=== PATIENT | male | born 1945 | race Caucasian/White ===

== ENCOUNTER → 2017-12-09 | Outpatient (CLI) | payer MEDICARE ==
[~2017-12-09] MED LIST: ACET325 PO; ANTIINFLAMMATORY; ASPI325; CHLO25B PO; CIPR500 PO; CLOP75 PO; ERGO400 PO; FINA5 PO; FISH1000 PO; GABA300 PO; HCTZ; HYDCHL12.5; HYDCHL25 PO; HYDR1TAB94 PO; IBUP400 PO; LISI10; LORA1 PO; LOSA50 PO; MELA3 PO; Mag-G500 MG; PANT40; PARO20 PO; POTA10T; POTA10T PO; PSYL5.85P PO; RXHYD5325 PO; SENN187 PO; SERT25 PO; SIMV10; TRAM50 PO
== END | disposition home or self-care (01) ==
LOC: PLD 13:52 → LAB SHORT 13:52
DX: D22.62 Melanocytic nevi of left upper limb, including shoulder (principal)
CPT/HCPCS: 88305

== ENCOUNTER 2018-01-07 11:55 | Day surgery (SDC) | payer MEDICARE ==
[~2018-01-07] VITALS: Ht 190.5 cm; Wt 105.0 kg
[2018-01-07] MEDS ORDERED: GLUC500 (12:52)
== END 2018-01-07 14:45 | disposition home or self-care (01) ==
LOC: ORSCSDS 11:55
PROVIDERS: Internal Medicine Gastroenterology
PROC: 0DJD8ZZ Inspection of Lower Intestinal Tract, Via Natural or Artificial Opening Endoscopic (ICD-10-PCS; principal; 2018-01-07 13:15)
DX: Z86.010 Personal history of colon polyps (principal); K64.8 Other hemorrhoids; I10 Essential (primary) hypertension; E78.5 Hyperlipidemia, unspecified; Z79.899 Other long term (current) drug therapy
CPT/HCPCS: J7120

== ENCOUNTER 2018-09-09 16:25 | Emergency (ER) | payer MEDICARE ==
[~2018-09-09] VITALS: Ht 190.5 cm; Wt 104.3 kg
[~2018-09-09 16:25] MED LIST changes: +GLUC500
[2018-09-09 17:50] LABS: BASOPHILS ABSOLUTE AUTO 0.04 K/mm3 (0.00-0.23); BASOPHILS PERCENT AUTO 1 % (0-2); EOSINOPHILS ABSOLUTE AUTO 0.03 K/mm3 (0.00-0.68); EOSINOPHILS PERCENT AUTO 1 % (0-6); Hematocrit 41.3 % (37.0-53.0); Hemoglobin 14.1 g/dL (13.5-17.5); IMMATURE GRAN ABSOLUTE AUTO 0.02 K/mm3 (0.00-0.10); IMMATURE GRAN PERCENT AUTO 0 % (0-1); LYMPHOCYTES ABSOLUTE AUTO 1.42 K/mm3 (0.84-5.20); LYMPHOCYTES PERCENT AUTO 22 % (21-46); MONOCYTES ABSOLUTE AUTO 0.61 K/mm3 (0.16-1.47); MONOCYTES PERCENT AUTO 9 % (4-13); Mean Corpuscular HGB 31.5 pg (26.0-34.0); Mean Corpuscular HGB Conc 34.1 g/dL (31.5-36.5); Mean Corpuscular Volume 92 fL (80-100); Mean Platelet Volume 9.6 fL (9.1-12.4); NEUTROPHILS ABSOLUTE AUTO 4.38 K/mm3 (1.96-9.15); NEUTROPHILS PERCENT AUTO 67 % (41-73); Platelet Count 220 K/mm3 (150-400); RDW Coefficient Variation 12.3 % (11.7-14.2); RDW Standard Deviation 42.1 fL (35.1-46.3); Red Blood Cell Count 4.48 M/mm3 (4.30-5.90)
[2018-09-09 17:57] LABS: Alanine Aminotransfer (ALT/SGP 29 U/L (12-78); Albumin, Blood 3.8 g/dL (3.4-5.0); Albumin/Globulin Ratio 1.1 (0.8-1.8); Alk Phos 64 U/L (50-136); Anion Gap 8 mmol/L (6-16); Aspartate Aminotrans (AST/SGOT 26 U/L (12-37); Bilirubin, Total 0.7 mg/dL (0.1-1.0); Blood Urea Nitrogen 21 mg/dL (8-24); Bun/Creatinine Ratio 19.4 (12.0-20.0); CO2, Blood 23 mmol/L (21-32); Calcium, Blood 8.7 mg/dL (8.5-10.1); Chloride, Blood 107 mmol/L (98-108); Creatinine, Blood 1.08 mg/dL (0.60-1.20); Globulin, Blood 3.6 g/dL (2.2-4.0); Glomerular Filtration Rate >60 (60-); Glucose, Blood 97 mg/dL (70-99); Potassium, Blood 3.8 mmol/L (3.5-5.5); Sodium, Blood 138 mmol/L (136-145); Total Protein, Blood 7.4 g/dL (6.4-8.2); Troponin I 0.019 ng/mL (0.000-0.040)
== END 2018-09-09 21:00 | disposition home or self-care (01) ==
LOC: ER 16:25
PROVIDERS: Physician Assistant
DX: R06.00 Dyspnea, unspecified (principal); F41.9 Anxiety disorder, unspecified; Z79.899 Other long term (current) drug therapy
CPT/HCPCS: 36415; 71046; 80053; 83880; 84484; 85025; 93005; 93010; 99285-25

== ENCOUNTER → 2018-10-31 | Outpatient (CLI) | payer MEDICARE ==
[2018-10-31 12:27] LABS: BASOPHILS ABSOLUTE AUTO 0.03 K/mm3 (0.00-0.23); BASOPHILS PERCENT AUTO 1 % (0-2); EOSINOPHILS ABSOLUTE AUTO 0.04 K/mm3 (0.00-0.68); EOSINOPHILS PERCENT AUTO 1 % (0-6); Hematocrit 41.4 % (37.0-53.0); Hemoglobin 14.5 g/dL (13.5-17.5); IMMATURE GRAN ABSOLUTE AUTO 0.02 K/mm3 (0.00-0.10); IMMATURE GRAN PERCENT AUTO 0 % (0-1); LYMPHOCYTES ABSOLUTE AUTO 0.92 K/mm3 (0.84-5.20); LYMPHOCYTES PERCENT AUTO 17 % (21-46); MONOCYTES ABSOLUTE AUTO 0.42 K/mm3 (0.16-1.47); MONOCYTES PERCENT AUTO 8 % (4-13); Mean Corpuscular HGB 31.7 pg (26.0-34.0); Mean Corpuscular Volume 91 fL (80-100); Mean Platelet Volume 9.8 fL (9.1-12.4); NEUTROPHILS ABSOLUTE AUTO 4.04 K/mm3 (1.96-9.15); NEUTROPHILS PERCENT AUTO 74 % (41-73); Platelet Count 216 K/mm3 (150-400); RDW Coefficient Variation 12.8 % (11.7-14.2); RDW Standard Deviation 41.5 fL (35.1-46.3); Red Blood Cell Count 4.57 M/mm3 (4.30-5.90); White Blood Cell Count 5.47 K/mm3 (4.00-11.30)
[2018-10-31 12:36] LABS: Anion Gap 10 mmol/L (6-16); Blood Urea Nitrogen 20 mg/dL (8-24); Bun/Creatinine Ratio 16.9 (12.0-20.0); CO2, Blood 27 mmol/L (21-32); Calcium, Blood 8.9 mg/dL (8.5-10.1); Chloride, Blood 103 mmol/L (98-108); Creatinine, Blood 1.18 mg/dL (0.60-1.20); Glomerular Filtration Rate >60 (60-); Glucose, Blood 102 mg/dL (70-99); Potassium, Blood 3.9 mmol/L (3.5-5.5); Sodium, Blood 140 mmol/L (136-145); Troponin I 0.028 ng/mL (0.000-0.040)
== END | disposition home or self-care (01) ==
LOC: LAB EV 12:19 → LAB SHORT 12:19
PROVIDERS: Physician Assistant Surgical
DX: R42 Dizziness and giddiness (principal)
CPT/HCPCS: 80048; 84484; 85025

== ENCOUNTER 2019-01-12 13:10 | Emergency (ER) | payer MEDICARE ==
[~2019-01-12] VITALS: Ht 188 cm; Wt 103.4 kg
[2019-01-12 14:13] LABS: BASOPHILS ABSOLUTE AUTO 0.03 K/mm3 (0.00-0.23); BASOPHILS PERCENT AUTO 1 % (0-2); EOSINOPHILS ABSOLUTE AUTO 0.05 K/mm3 (0.00-0.68); EOSINOPHILS PERCENT AUTO 1 % (0-6); Hematocrit 42.9 % (37.0-53.0); Hemoglobin 14.7 g/dL (13.5-17.5); IMMATURE GRAN ABSOLUTE AUTO 0.02 K/mm3 (0.00-0.10); IMMATURE GRAN PERCENT AUTO 0 % (0-1); LYMPHOCYTES ABSOLUTE AUTO 1.14 K/mm3 (0.84-5.20); LYMPHOCYTES PERCENT AUTO 22 % (21-46); MONOCYTES ABSOLUTE AUTO 0.56 K/mm3 (0.16-1.47); MONOCYTES PERCENT AUTO 11 % (4-13); Mean Corpuscular HGB 31.8 pg (26.0-34.0); Mean Corpuscular HGB Conc 34.3 g/dL (31.5-36.5); Mean Corpuscular Volume 93 fL (80-100); Mean Platelet Volume 9.5 fL (9.1-12.4); NEUTROPHILS ABSOLUTE AUTO 3.49 K/mm3 (1.96-9.15); NEUTROPHILS PERCENT AUTO 66 % (41-73); Platelet Count 226 K/mm3 (150-400); RDW Coefficient Variation 12.5 % (11.7-14.2); RDW Standard Deviation 42.2 fL (35.1-46.3); Red Blood Cell Count 4.62 M/mm3 (4.30-5.90); White Blood Cell Count 5.29 K/mm3 (4.00-11.30)
[2019-01-12 14:41] LABS: Alanine Aminotransfer (ALT/SGP 30 U/L (12-78); Albumin, Blood 3.8 g/dL (3.4-5.0); Alk Phos 64 U/L (50-136); Anion Gap 7 mmol/L (6-16); Aspartate Aminotrans (AST/SGOT 13 U/L (12-37); Bilirubin, Total 0.7 mg/dL (0.1-1.0); Blood Urea Nitrogen 22 mg/dL (8-24); CO2, Blood 26 mmol/L (21-32); Calcium, Blood 9.2 mg/dL (8.5-10.1); Chloride, Blood 109 mmol/L (98-108); Creatinine, Blood 1.05 mg/dL (0.60-1.20); Globulin, Blood 3.9 g/dL (2.2-4.0); Glomerular Filtration Rate >60 (60-); Glucose, Blood 108 mg/dL (70-99); Potassium, Blood 3.9 mmol/L (3.5-5.5); Sodium, Blood 142 mmol/L (136-145); Total Protein, Blood 7.7 g/dL (6.4-8.2)
[2019-01-12 14:47] LABS: International Normalized Ratio 1.03; Prothrombin Time Results 10.9 Sec (9.7-11.5)
== END 2019-01-12 15:13 | disposition home or self-care (01) ==
LOC: ER 13:10
PROVIDERS: Physician Assistant
DX: S06.0X0A Concussion without loss of consciousness, initial encounter (principal); I10 Essential (primary) hypertension; E78.5 Hyperlipidemia, unspecified; W18.30XA Fall on same level, unspecified, initial encounter
CPT/HCPCS: 36415; 70450; 72125; 80053; 85025; 85610; 85730; 93005; 93010; 99284-25; L0160

== ENCOUNTER 2019-05-08 23:18 | Emergency (ER) | payer MEDICARE ==
[~2019-05-08] VITALS: Ht 188 cm; Wt 104.3 kg
[2019-05-09 00:07] LABS: BASOPHILS ABSOLUTE AUTO 0.02 K/mm3 (0.00-0.23); BASOPHILS PERCENT AUTO 0 % (0-2); EOSINOPHILS PERCENT AUTO 2 % (0-6); Hematocrit 39.7 % (37.0-53.0); Hemoglobin 13.5 g/dL (13.5-17.5); IMMATURE GRAN ABSOLUTE AUTO 0.01 K/mm3 (0.00-0.10); IMMATURE GRAN PERCENT AUTO 0 % (0-1); LYMPHOCYTES ABSOLUTE AUTO 1.29 K/mm3 (0.84-5.20); LYMPHOCYTES PERCENT AUTO 24 % (21-46); MONOCYTES ABSOLUTE AUTO 0.52 K/mm3 (0.16-1.47); MONOCYTES PERCENT AUTO 10 % (4-13); Mean Corpuscular HGB 31.5 pg (26.0-34.0); Mean Corpuscular Volume 93 fL (80-100); Mean Platelet Volume 9.5 fL (9.1-12.4); NEUTROPHILS ABSOLUTE AUTO 3.51 K/mm3 (1.96-9.15); NEUTROPHILS PERCENT AUTO 64 % (41-73); Platelet Count 212 K/mm3 (150-400); RDW Coefficient Variation 12.5 % (11.7-14.2); RDW Standard Deviation 42.5 fL (35.1-46.3); Red Blood Cell Count 4.28 M/mm3 (4.30-5.90); White Blood Cell Count 5.45 K/mm3 (4.00-11.30)
[2019-05-09 00:29] LABS: Alanine Aminotransfer (ALT/SGP 30 U/L (12-78); Albumin, Blood 3.6 g/dL (3.4-5.0); Albumin/Globulin Ratio 1.1 (0.8-1.8); Alk Phos 55 U/L (50-136); Anion Gap 7 mmol/L (6-16); Aspartate Aminotrans (AST/SGOT 27 U/L (12-37); Bilirubin, Total 0.6 mg/dL (0.1-1.0); Blood Urea Nitrogen 24 mg/dL (8-24); CO2, Blood 27 mmol/L (21-32); Calcium, Blood 8.9 mg/dL (8.5-10.1); Chloride, Blood 109 mmol/L (98-108); Globulin, Blood 3.4 g/dL (2.2-4.0); Glomerular Filtration Rate >60 (60-); Glucose, Blood 109 mg/dL (70-99); Potassium, Blood 3.9 mmol/L (3.5-5.5); Sodium, Blood 143 mmol/L (136-145); Troponin I <0.015 ng/mL (0.000-0.040)
[2019-05-09 01:11] LABS: Source, Urine Clean Catch
[2019-05-09 01:13] LABS: Bilirubin, Urine Neg (Neg); Blood, Urine Neg (Neg); Glucose Qualitative, Urine Neg (Neg); Ketones, Urine 1+ (Neg); Leukocyte Esterase, Urine 1+ (Neg); Nitrite, Urine Neg (Neg); Protein, Urine Neg (Neg); Urobilinogen, Urine NORM (Normal); pH, Urine 6.5 (5.0-8.0)
[2019-05-09 01:17] LABS: Appearance, Urine Clear (Clear); Color, Urine Yellow (P-Yellow)
[2019-05-09 01:20] LABS: Bacteria Rare /hpf; Red Blood Cells, Urine 0-2 /hpf (0-2); Squamous Epithelial Cells Few /hpf (Few); White Blood Cells, Urine 0-2 /hpf (0-5)
[2019-05-09] MEDS ORDERED: Bactrim Ds Tab1 EACH PO (01:32)
[2019-05-09] MEDS ORDERED: Simvastatin20 MG PO (03:02)
[2019-05-09] MEDS ORDERED: HYDCHL25 PO (03:02)
[2019-05-09] MEDS ORDERED: LOSARTAN POTASS25 M2 PO (03:02)
== END 2019-05-09 01:53 | disposition home or self-care (01) ==
LOC: ER 23:18
PROVIDERS: Emergency Medicine
DX: R82.71 Bacteriuria (principal); R68.89 Other general symptoms and signs; R68.83 Chills (without fever); Z88.5 Allergy status to narcotic agent; Z88.8 Allergy status to other drugs, medicaments and biological substances; Z79.899 Other long term (current) drug therapy; G89.29 Other chronic pain; M54.2 Cervicalgia
CPT/HCPCS: 36415; 80053; 81001; 82947; 84484; 85025; 87086; 93005; 93010; 99284-25

== ENCOUNTER 2022-06-05 11:09 | Day surgery (SDC) | payer MEDICARE ==
[~2022-06-05] VITALS: Ht 188 cm; Wt 98.4 kg
[~2022-06-05 11:09] MED LIST changes: +Bactrim Ds Tab1 EACH PO; +LOSARTAN POTASS25 M2 PO; +Simvastatin20 MG PO
[2022-06-05] MEDS ORDERED: Aspir 8181 MG PO (11:53)
[2022-06-05] MEDS ORDERED: GLUC500 (11:55)
[2022-06-05] MEDS ORDERED: GABA300 PO (11:55)
[2022-06-05] MEDS ORDERED: POTASSIUM99 M3 PO (11:56)
[2022-06-05] MEDS ORDERED: LEVE500 (11:56)
[2022-06-05] MEDS ORDERED: TRIA50 PO (11:57)
[2022-06-05] MEDS ORDERED: Restasis1 EACH BOTHEYES (11:57)
--- NOTE | 2022-06-05 12:22 | NUR ---
06/05/22 1222 Gulshan Calvert CALL LIGHT WITHIN REACH
== END 2022-06-05 14:54 | disposition home or self-care (01) ==
LOC: ORSCSDS 11:09
PROVIDERS: Internal Medicine Gastroenterology
PROC: 0DBL8ZX Excision of Transverse Colon, Via Natural or Artificial Opening Endoscopic, Diagnostic (ICD-10-PCS; principal; 2022-06-05 12:30)
PROC: 0DBE8ZX Excision of Large Intestine, Via Natural or Artificial Opening Endoscopic, Diagnostic (ICD-10-PCS; principal; 2022-06-05 12:30)
DX: R19.4 Change in bowel habit (principal); Z86.010 Personal history of colon polyps; D12.3 Benign neoplasm of transverse colon; Z87.19 Personal history of other diseases of the digestive system; K57.30 Diverticulosis of large intestine without perforation or abscess without bleeding; K64.8 Other hemorrhoids; I10 Essential (primary) hypertension; G47.33 Obstructive sleep apnea (adult) (pediatric); Z86.73 Personal history of transient ischemic attack (TIA), and cerebral infarction without residual deficits; M79.7 Fibromyalgia; Z79.899 Other long term (current) drug therapy
CPT/HCPCS: 88305; J0461; J2405; J2704; J7120

== ENCOUNTER → 2022-10-22 | Outpatient (CLI) | payer MEDICARE ==
[~2022-10-22] MED LIST changes: +Aspir 8181 MG PO; +LEVE500; +POTASSIUM99 M3 PO; +Restasis1 EACH BOTHEYES; +TRIA50 PO
[2022-10-22 17:11] LABS: BASOPHILS ABSOLUTE AUTO 0.04 K/mm3 (0.00-0.23); BASOPHILS PERCENT AUTO 1 % (0-2); EOSINOPHILS ABSOLUTE AUTO 0.08 K/mm3 (0.00-0.68); EOSINOPHILS PERCENT AUTO 1 % (0-6); Hematocrit 43.3 % (37.0-53.0); IMMATURE GRAN ABSOLUTE AUTO 0.02 K/mm3 (0.00-0.10); IMMATURE GRAN PERCENT AUTO 0 % (0-1); LYMPHOCYTES ABSOLUTE AUTO 1.28 K/mm3 (0.84-5.20); LYMPHOCYTES PERCENT AUTO 21 % (21-46); MONOCYTES ABSOLUTE AUTO 0.62 K/mm3 (0.16-1.47); MONOCYTES PERCENT AUTO 10 % (4-13); Mean Corpuscular HGB 30.9 pg (26.0-34.0); Mean Corpuscular HGB Conc 34.6 g/dL (31.5-36.5); Mean Corpuscular Volume 89 fL (80-100); Mean Platelet Volume 9.4 fL (9.1-12.4); NEUTROPHILS ABSOLUTE AUTO 3.99 K/mm3 (1.96-9.15); NEUTROPHILS PERCENT AUTO 66 % (41-73); Platelet Count 243 K/mm3 (150-400); RDW Coefficient Variation 12.7 % (11.7-14.2); RDW Standard Deviation 41.2 fL (35.1-46.3); Red Blood Cell Count 4.86 M/mm3 (4.30-5.90); White Blood Cell Count 6.03 K/mm3 (4.00-11.30)
[2022-10-22 17:15] LABS: Bun/Creatinine Ratio 16.3 (12.0-20.0); Creatinine, Blood 1.23 mg/dL (0.60-1.20); Potassium, Blood 3.8 mmol/L (3.5-5.5)
== END | disposition home or self-care (01) ==
LOC: LAB 17:05 → LAB SHORT 17:05
PROVIDERS: Physician Assistant Medical
DX: R07.89 Other chest pain (principal)
CPT/HCPCS: 80048; 84484; 85025

== ENCOUNTER 2023-08-04 08:57 | Emergency (ER) | payer MEDICARE ==
[~2023-08-04] VITALS: Ht 188 cm; Wt 95.2 kg
[~2023-08-04 08:57] MED LIST changes: +GLUC500 PO; -LEVE500; +LEVE500 PO
[2023-08-04 10:19] LABS: BASOPHILS ABSOLUTE AUTO 0.05 K/mm3 (0.00-0.23); BASOPHILS PERCENT AUTO 1 % (0-2); EOSINOPHILS ABSOLUTE AUTO 0.05 K/mm3 (0.00-0.68); EOSINOPHILS PERCENT AUTO 1 % (0-6); Hematocrit 39.9 % (37.0-53.0); Hemoglobin 13.7 g/dL (13.5-17.5); IMMATURE GRAN ABSOLUTE AUTO 0.02 K/mm3 (0.00-0.10); IMMATURE GRAN PERCENT AUTO 0 % (0-1); LYMPHOCYTES ABSOLUTE AUTO 1.08 K/mm3 (0.84-5.20); LYMPHOCYTES PERCENT AUTO 16 % (21-46); MONOCYTES ABSOLUTE AUTO 0.55 K/mm3 (0.16-1.47); MONOCYTES PERCENT AUTO 8 % (4-13); Mean Corpuscular HGB 30.8 pg (26.0-34.0); Mean Corpuscular HGB Conc 34.3 g/dL (31.5-36.5); Mean Corpuscular Volume 90 fL (80-100); Mean Platelet Volume 9.5 fL (9.1-12.4); NEUTROPHILS ABSOLUTE AUTO 4.98 K/mm3 (1.96-9.15); NEUTROPHILS PERCENT AUTO 74 % (41-73); Platelet Count 277 K/mm3 (150-400); RDW Coefficient Variation 12.3 % (11.7-14.2); RDW Standard Deviation 40.1 fL (35.1-46.3); Red Blood Cell Count 4.45 M/mm3 (4.30-5.90); White Blood Cell Count 6.73 K/mm3 (4.00-11.30)
[2023-08-04 11:30] LABS: Thyroid Stimulating Hormone 1.4 uIU/mL (0.360-4.800)
[2023-08-04 11:31] LABS: Albumin, Blood 3.6 g/dL (3.4-5.0); Albumin/Globulin Ratio 0.9 (0.8-1.8); Bilirubin, Total 0.6 mg/dL (0.1-1.0); Bun/Creatinine Ratio 25.2 (12.0-20.0); Calcium, Blood 10.6 mg/dL (8.5-10.1); Creatinine, Blood 1.03 mg/dL (0.60-1.20); Globulin, Blood 3.9 g/dL (2.2-4.0); Potassium, Blood 3.9 mmol/L (3.5-5.5); Total Protein, Blood 7.5 g/dL (6.4-8.2)
[2023-08-04] MEDS ORDERED: LACOSAMIDE PO (11:35)
[2023-08-04] MEDS ORDERED: DYAZIDE 37.5-21 EACH PO (11:36)
[2023-08-04] MEDS ORDERED: TOPI25 PO (11:37)
[2023-08-04 12:57] VITALS: BP 150/95
== END 2023-08-04 12:58 | disposition home or self-care (01) ==
LOC: ER 08:57
PROVIDERS: Emergency Medicine
DX: R41.0 Disorientation, unspecified (principal); I10 Essential (primary) hypertension; Z88.5 Allergy status to narcotic agent; Z88.8 Allergy status to other drugs, medicaments and biological substances; Z79.899 Other long term (current) drug therapy; Z79.82 Long term (current) use of aspirin
CPT/HCPCS: 70450; 80053; 82607; 82746; 84443; 85025; 99283-25

== ENCOUNTER → 2024-05-21 | Outpatient (CLI) | payer MEDICARE ==
[~2024-05-21] MED LIST changes: +CEFP200 PO; +CELEXA10 MG PO; +CINACALCET HCL30 M1 PO; +DYAZIDE 37.5-21 EACH PO; +FUROSEMIDE20 MG PO; +LACOSAMIDE PO; +TAMSULOSIN HCL0.4 M1 PO; +TOPI25 PO; +VITAMIN D325 MC3 PO; +Vitamin B-12100 MCG PO
[2024-05-21 09:08] LABS: Source, Urine Voided
[2024-05-21 10:34] LABS: Appearance, Urine Hazy (Clear); Bilirubin, Urine Neg (Neg); Blood, Urine Neg (Neg); Color, Urine Yellow (P-Yellow); Glucose Qualitative, Urine Neg (Neg); Ketones, Urine Neg (Neg); Leukocyte Esterase, Urine Neg (Neg); Nitrite, Urine Neg (Neg); Protein, Urine Neg (Neg); Specific Gravity, Urine 1.015 (1.003-1.022); Urobilinogen, Urine 1+ (Normal)
[2024-05-21 11:37] LABS: Amorphous Mod (0-Heavy); Bacteria Few /hpf; Red Blood Cells, Urine 0-2 /hpf (0-2); Squamous Epithelial Cells Rare /hpf (Few); White Blood Cells, Urine 0-2 /hpf (0-5)
== END ==
LOC: LAB SHORT 08:40 → LAB 08:40
PROVIDERS: Hospitalist
DX: E21.3 Hyperparathyroidism, unspecified (principal)
CPT/HCPCS: 81001

== ENCOUNTER → 2024-10-09 | Outpatient (CLI) | payer MEDICARE ==
[2024-10-09 09:41] LABS: Source, Urine Voided
[2024-10-09 10:27] LABS: Appearance, Urine Clear (Clear); Bilirubin, Urine Neg (Neg); Blood, Urine Neg (Neg); Color, Urine Yellow (P-Yellow); Glucose Qualitative, Urine Neg (Neg); Ketones, Urine Neg (Neg); Leukocyte Esterase, Urine 1+ (Neg); Nitrite, Urine Pos (Neg); Protein, Urine 1+ (Neg); Urobilinogen, Urine NORM (Normal)
[2024-10-09 10:46] LABS: Mucus Light (0-Heavy); Squamous Epithelial Cells Rare /hpf (Few)
[2024-10-09 10:47] LABS: Bacteria Mod /hpf; Red Blood Cells, Urine 0-2 /hpf (0-2)
== END ==
LOC: LAB SHORT 09:40 → LAB 09:40
PROVIDERS: Hospitalist
DX: E21.3 Hyperparathyroidism, unspecified (principal)
CPT/HCPCS: 81001; 87086

== ENCOUNTER → 2024-12-31 | Outpatient (CLI) | payer MEDICARE | END | disposition home or self-care (01) | LOC: LAB 10:52 → LAB SHORT 10:52 | DX: N39.0 Urinary tract infection, site not specified (principal) | CPT/HCPCS: 87077; 87086; 87186 ==

== ENCOUNTER 2025-02-25 10:06 | Emergency (ER) | payer MEDICARE ==
[~2025-02-25] VITALS: Ht 182.9 cm; Wt 113.4 kg
[2025-02-25 11:28] LABS: Source, Urine Clean Catch
[2025-02-25 11:45] LABS: BASOPHILS ABSOLUTE AUTO 0.02 K/mm3 (0.00-0.23); BASOPHILS PERCENT AUTO 0 % (0-2); EOSINOPHILS ABSOLUTE AUTO 0.09 K/mm3 (0.00-0.68); EOSINOPHILS PERCENT AUTO 1 % (0-6); Hemoglobin 10.7 g/dL (13.5-17.5); IMMATURE GRAN ABSOLUTE AUTO 0.03 K/mm3 (0.00-0.10); IMMATURE GRAN PERCENT AUTO 0 % (0-1); LYMPHOCYTES ABSOLUTE AUTO 0.68 K/mm3 (0.84-5.20); LYMPHOCYTES PERCENT AUTO 9 % (21-46); MONOCYTES ABSOLUTE AUTO 0.67 K/mm3 (0.16-1.47); MONOCYTES PERCENT AUTO 9 % (4-13); Mean Corpuscular HGB 31.7 pg (26.0-34.0); Mean Corpuscular HGB Conc 34.5 g/dL (31.5-36.5); Mean Corpuscular Volume 92 fL (80-100); NEUTROPHILS PERCENT AUTO 80 % (41-73); Platelet Count 179 K/mm3 (150-400); RDW Coefficient Variation 12.7 % (11.7-14.2); RDW Standard Deviation 42.5 fL (35.1-46.3); Red Blood Cell Count 3.38 M/mm3 (4.30-5.90); White Blood Cell Count 7.59 K/mm3 (4.00-11.30)
[2025-02-25 11:49] LABS: Appearance, Urine Cloudy (Clear); Bilirubin, Urine Neg (Neg); Blood, Urine 4+ (Neg); Color, Urine Yellow (P-Yellow); Glucose Qualitative, Urine Neg (Neg); Ketones, Urine Neg (Neg); Leukocyte Esterase, Urine 3+ (Neg); Nitrite, Urine Pos (Neg); Protein, Urine 2+ (Neg); Specific Gravity, Urine 1.015 (1.003-1.022); Urobilinogen, Urine NORM (Normal); pH, Urine 6.5 (5.0-8.0)
[2025-02-25 12:07] LABS: Albumin, Blood 2.9 g/dL (3.4-5.0); Albumin/Globulin Ratio 0.9 (0.8-1.8); Bilirubin, Total 0.7 mg/dL (0.1-1.0); Bun/Creatinine Ratio 19.1 (12.0-20.0); Calcium, Blood 10.2 mg/dL (8.5-10.1); Globulin, Blood 3.2 g/dL (2.2-4.0); Potassium, Blood 3.8 mmol/L (3.5-5.5); Total Protein, Blood 6.1 g/dL (6.4-8.2)
[2025-02-25] MEDS ORDERED: CefTRIAXone Sodium 1,000 MG in NS 100 ML IV ONE (12:25)
[2025-02-25 12:27] LABS: Bacteria Many /hpf; Red Blood Cells, Urine 25-50 /hpf (0-2); Squamous Epithelial Cells Rare /hpf (Few); White Blood Cells, Urine 50-100 /hpf (0-5)
[2025-02-25] MEDS ORDERED: CEFP200 PO (13:10)
[2025-02-25 14:21] VITALS: BP 124/76
== END 2025-02-25 14:22 | disposition home or self-care (01) ==
LOC: ER 10:06
PROVIDERS: Emergency Medicine
DX: N30.00 Acute cystitis without hematuria (principal); I10 Essential (primary) hypertension; Z86.73 Personal history of transient ischemic attack (TIA), and cerebral infarction without residual deficits; Z79.82 Long term (current) use of aspirin; Z79.899 Other long term (current) drug therapy; Z88.5 Allergy status to narcotic agent; Z88.8 Allergy status to other drugs, medicaments and biological substances
CPT/HCPCS: 80053; 81001; 84484; 85025; 87086; 93005; 93010; 96365; 99284-25; J0696

== ENCOUNTER 2025-03-27 22:04 | Inpatient (IN) | payer MEDICARE ==
[~2025-03-27] VITALS: Ht 188 cm; Wt 85.1 kg
[~2025-03-27 22:04] MED LIST changes: +Vitamin B-12100 MCG; -Vitamin B-12100 MCG PO
[2025-03-27 23:00] LABS: BASOPHILS ABSOLUTE AUTO 0.02 K/mm3 (0.00-0.23); BASOPHILS PERCENT AUTO 0 % (0-2); EOSINOPHILS ABSOLUTE AUTO 0.05 K/mm3 (0.00-0.68); EOSINOPHILS PERCENT AUTO 1 % (0-6); Hematocrit 35.6 % (37.0-53.0); Hemoglobin 11.9 g/dL (13.5-17.5); IMMATURE GRAN ABSOLUTE AUTO 0.05 K/mm3 (0.00-0.10); IMMATURE GRAN PERCENT AUTO 1 % (0-1); LYMPHOCYTES ABSOLUTE AUTO 0.73 K/mm3 (0.84-5.20); LYMPHOCYTES PERCENT AUTO 11 % (21-46); MONOCYTES ABSOLUTE AUTO 0.41 K/mm3 (0.16-1.47); MONOCYTES PERCENT AUTO 6 % (4-13); Mean Corpuscular HGB Conc 33.4 g/dL (31.5-36.5); Mean Corpuscular Volume 93 fL (80-100); NEUTROPHILS ABSOLUTE AUTO 5.12 K/mm3 (1.96-9.15); NEUTROPHILS PERCENT AUTO 80 % (41-73); NRBC ABSOLUTE 0.00 K/mm3 (0.00-0.02); NRBC Auto 0.0 /100 WBC (0.0-0.2); Platelet Count 187 K/mm3 (150-400); RDW Coefficient Variation 13.2 % (11.7-14.2); RDW Standard Deviation 44.9 fL (35.1-46.3)
[2025-03-27 23:24] LABS: Alanine Aminotransfer (ALT/SGP 25.0 U/L (12-78); Albumin, Blood 3.3 g/dL (3.4-5.0); Albumin/Globulin Ratio 0.9 (0.8-1.8); Anion Gap 7.0 mmol/L (3-11); Aspartate Aminotrans (AST/SGOT 22.0 U/L (12-37); Bilirubin, Total 0.5 mg/dL (0.1-1.0); Blood Urea Nitrogen 20.0 mg/dL (8-24); CO2, Blood 28.0 mmol/L (21-32); Calcium, Blood 11.2 mg/dL (8.5-10.1); Chloride, Blood 107.0 mmol/L (98-108); Creatinine, Blood 1.17 mg/dL (0.60-1.20); Globulin, Blood 3.6 g/dL (2.2-4.0); Glucose, Blood 117.0 mg/dL (70-99); Potassium, Blood 3.7 mmol/L (3.5-5.5); Sodium, Blood 138.0 mmol/L (136-145); Total Protein, Blood 6.9 g/dL (6.4-8.2)
[2025-03-28] VITALS (21 sets, daily range): BP systolic 87–152; BP diastolic 59–93
[2025-03-28] MEDS ORDERED: Glycerin Adult Supp 1 EA PR ONE (00:05)
[2025-03-28] MEDS ORDERED: Ondansetron HCl 2 MG / ML 2ML Vial IV PRN ×2 (00:15→11:45)
[2025-03-28] MEDS ORDERED: FentaNYL Citrate 50 MCG/ML 2 ML Injection IV PRN ×3 (00:15→11:45)
[2025-03-28] MEDS ORDERED: NS 1,000 ML IV SCH (00:15)
[2025-03-28] MEDS ORDERED: NS 1,000 ML IV ONE (01:10)
[2025-03-28 01:35] LABS: Bilirubin, Urine Neg (Neg); Glucose Qualitative, Urine Neg (Neg); Ketones, Urine Neg (Neg); Leukocyte Esterase, Urine 1+ (Neg); Protein, Urine 2+ (Neg); Source, Urine Clean Catch; Specific Gravity, Urine 1.020 (1.003-1.022); Urobilinogen, Urine NORM (Normal)
[2025-03-28 01:45] LABS: Color, Urine Yellow (P-Yellow)
[2025-03-28 01:50] LABS: White Blood Cells, Urine 25-50 /hpf (0-5)
[2025-03-28 01:52] LABS: Prothrombin Time Results 12.2 Sec (9.7-11.5)
[2025-03-28] MEDS ORDERED: Primidone50 MG PO (02:04)
[2025-03-28] MEDS ORDERED: MEMANTINE HCL511 PO (02:05)
--- NOTE | 2025-03-28 03:01 | NUR ---
0145 PT ARRIVES VIA GURNEY FROM ED WITH STAFF. PT TRANSFERRED TO BED FROM [facility]; ANALYST AND THERMAL MOLDER REPLACED ROXY AFTER SHAVING PT. PT AT BEDSIDE FOR ADMISSION ASSESSMENT. CALL LIGHT WITHIN REACH.
--- NOTE | 2025-03-28 03:42 | NUR ---
RN TO ROOM TO ROUND; PT ASLEEP, EQUAL AND UNLABORED BREATHS. CALL LIGHT WITHIN REACH, BED ALARM ON FOR SAFETY.
--- NOTE | 2025-03-28 04:18 | NUR ---
PT AWAKE AND CALLS TO THIS RN WALKING BY; PT REPORTS WONDERING WHERE HIS IS. PT REMINDED THAT HIS WENT HOME TO SLEEP.
[2025-03-28 05:01] LABS: BASOPHILS ABSOLUTE AUTO 0.02 K/mm3 (0.00-0.23); BASOPHILS PERCENT AUTO 0 % (0-2); EOSINOPHILS ABSOLUTE AUTO 0.08 K/mm3 (0.00-0.68); EOSINOPHILS PERCENT AUTO 1 % (0-6); Hematocrit 32.9 % (37.0-53.0); Hemoglobin 11.0 g/dL (13.5-17.5); IMMATURE GRAN ABSOLUTE AUTO 0.04 K/mm3 (0.00-0.10); IMMATURE GRAN PERCENT AUTO 1 % (0-1); LYMPHOCYTES ABSOLUTE AUTO 0.81 K/mm3 (0.84-5.20); LYMPHOCYTES PERCENT AUTO 9 % (21-46); MONOCYTES ABSOLUTE AUTO 0.66 K/mm3 (0.16-1.47); MONOCYTES PERCENT AUTO 8 % (4-13); Mean Corpuscular HGB Conc 33.4 g/dL (31.5-36.5); Mean Corpuscular Volume 92 fL (80-100); NEUTROPHILS ABSOLUTE AUTO 6.97 K/mm3 (1.96-9.15); NEUTROPHILS PERCENT AUTO 81 % (41-73); NRBC ABSOLUTE 0.00 K/mm3 (0.00-0.02); NRBC Auto 0.0 /100 WBC (0.0-0.2); Platelet Count 168 K/mm3 (150-400); RDW Coefficient Variation 13.0 % (11.7-14.2); RDW Standard Deviation 43.9 fL (35.1-46.3)
[2025-03-28 05:34] LABS: Alanine Aminotransfer (ALT/SGP 22.0 U/L (12-78); Albumin, Blood 3.0 g/dL (3.4-5.0); Albumin/Globulin Ratio 0.9 (0.8-1.8); Anion Gap 6.0 mmol/L (3-11); Aspartate Aminotrans (AST/SGOT 18.0 U/L (12-37); Bilirubin, Total 0.8 mg/dL (0.1-1.0); Blood Urea Nitrogen 21.0 mg/dL (8-24); CO2, Blood 27.0 mmol/L (21-32); Calcium, Blood 10.3 mg/dL (8.5-10.1); Chloride, Blood 108.0 mmol/L (98-108); Creatinine, Blood 1.0 mg/dL (0.60-1.20); Ferritin, Serum 408.0 ng/mL (26-388); Globulin, Blood 3.3 g/dL (2.2-4.0); Glucose, Blood 112.0 mg/dL (70-99); Potassium, Blood 3.4 mmol/L (3.5-5.5); Sodium, Blood 138.0 mmol/L (136-145); Total Iron Binding Capacity 225.0 ug/dL (250-450); Total Protein, Blood 6.3 g/dL (6.4-8.2)
--- NOTE | 2025-03-28 05:50 | NUR ---
SHIFT SUMMARY NO ACUTE CHANGES SINCE ARRIVAL. PT WITH PUREWICK IN PLACE; NEW BAG PLACED UPON ARRIVAL DUE TO LEAK. PT (SEP) WILL BE BACK THIS MORNING FOR UPDATE TO PLAN OF CARE.
[2025-03-28 07:01] LABS: Magnesium, Blood 2.0 mg/dL (1.6-2.4); Phosphorus, Blood 2.2 mg/dL (2.5-4.9)
--- NOTE | 2025-03-28 07:29 | NUR ---
URINE COLLECTION- OLAMIDE FROM LAB STATES URINE CULTURE PREVIOUSLY OBTAINED IS ADEQUATE FOR UA AND SECOND ORDER IN PLACE NOT NEEDING TO BE OBTAINED.
[2025-03-28] MEDS ORDERED: Miconazole Nitrate 2% 85 GM PWD TOP SCH (09:00)
[2025-03-28] MEDS ORDERED: CeFAZolin Sodium 2,000 MG in NS 100 ML IV SCH (10:15)
[2025-03-28] MEDS ORDERED: Ropivacaine 0.5% HCl/Pf 123.125 MG,EPINEPHrine HCL 0.25 MG,Ketorolac Tromethamine 15 MG... INFIL SCH (10:15)
[2025-03-28] MEDS ORDERED: Tranexamic Acid 100 ML IV SCH (10:20)
--- NOTE | 2025-03-28 11:05 | NUR ---
PT TRANSFERED TO PACU VIA BED FROM ROOM 212 FOR PREOP CARE AT 1005. AT BEDSIDE. PT ALERT & PLEASANT. ANSWERS QUESTIONS APPROPRIATELY. DENIES PAIN/NAUSEA AT THIS TIME. SURGICAL PACK COMPLETE. REFUSAL JEWELRY (RING) FOR PROCEDURE SIGNED BY & DATED. AFEBRILE/VSS. SURGICAL HAT/BP CUFF/PAS SLEEVES IN PLACE. WARM BLANKETS PLACED FOR COMFORT. NO COMPLAINTS. SUPPORTIVE/COMFORTING w/PATIENT.
--- NOTE | 2025-03-28 11:12 | NUR ---
PT TO OR 4 VIA BED IN STABLE CONDITION. GIVEN ORANGE JUICE/YOGURT AND DIRECTED TO THE WAITING AREA. APPRECIATIVE OF HER CARE.
[2025-03-28] MEDS ORDERED: Dexamethasone Sod Phos 10 MG/ML 1ML VIAL ONE (11:24)
[2025-03-28] MEDS ORDERED: Ondansetron HCl 2 MG / ML 2ML Vial ONE (11:24)
[2025-03-28] MEDS ORDERED: HYDROmorphone HCl/Pf 1MG SYR IV PRN (11:40)
[2025-03-28] MEDS ORDERED: Albuterol 2.5 MG/3 ML VIAL INH PRN (11:45)
[2025-03-28] MEDS ORDERED: ePHEDrine Sulfate 50 MG/ML 1ML Injection ONE (11:53)
[2025-03-28] MEDS ORDERED: Phenylephrine HCl 100 MCG/ML-NS 10MLSYR (1MG/10ML) ONE (12:05)
--- NOTE | 2025-03-28 19:06 | NUR ---
SHIFT SUMMARY PATIENT ALERT AND ORIENTED TO SELF AND LOCATION. PLEASANT AND COOPERATIVE WITH STAFF. CONFUSED. FENTANYL ADMINISTERED PER MAR FOR LEFT HIP PAIN. PATIENT WITH SURGICAL INTERVENTION FOR LEFT HIP THIS SHIFT, LEFT THE FLOOR AT 1005 AND RETRUNED APPROX 1420. PATIENT RETURNED WITH 2LPM OXYGEN, ATTEMPTED TO BE REMOVED AND SPO2 90% SO WAS PLACED AGAIN. VSS. SPINAL SITE WNL, GRAVEL WHEELER. AQUACELL DRESSING C/D/I. IV POTASSIUM ADMINISTERED THIS MORNING, IV FLUIDS COMPLETED THIS AFTERNOON. BLADDER SCAN THIS EVENING SHOWED 1786ML URINE RETENTION, STRAIGHT CATH 1900ML, PATIENT TOLERATED WELL. MALE PUREWICK REMOVED AND ATTENDS IN PLACE. PATIENT'S SPOUSE, MARBIN, AT BEDSIDE ALL SHIFT AND LEFT THIS EVENING. NO OTHER CONCERNS AT THIS TIME, BEDSIDE SHIFT REPORT GIVEN TO RESEARCH PHYSICIST RN.
[2025-03-29 00:50] LABS: Source, Urine Clean Catch
[2025-03-29 00:53] LABS: Bilirubin, Urine Neg (Neg); Glucose Qualitative, Urine Neg (Neg); Ketones, Urine Neg (Neg); Leukocyte Esterase, Urine 1+ (Neg); Protein, Urine 1+ (Neg); Specific Gravity, Urine 1.020 (1.003-1.022); Urobilinogen, Urine NORM (Normal)
--- NOTE | 2025-03-29 01:00 | NUR ---
0010 CALL TO RN FROM TECH IN ROOM; SINCE RN ROUNDED FOR POST OP ASSESSMENT, PT HAD REMOVED GOWN, REMOVED AQUACEL. PLEASANT AND REDIRECTABLE. WOUND CLEANSED WITH NS AND GAUZE; ACUACEL REPLACED. PT STATES THAT HE WOULD LIKE TO VOID; URINAL PLACED AND PT UNABLE TO VOID. STRAIGHT CATH PERFORMED; UA SENT TO LAB PER LAB REQUEST. PT BED ALARM ON FOR SAFETY.
[2025-03-29 01:13] LABS: Color, Urine Yellow (P-Yellow)
[2025-03-29 01:14] LABS: Red Blood Cells, Urine 0-2 /hpf (0-2); White Blood Cells, Urine 25-50 /hpf (0-5)
--- NOTE | 2025-03-29 01:24 | NUR ---
RN TO ROOM TO ROUND; PT SLEEPING WITH EQUAL AND UNLABORED BREATHS. CALL LIGHT WITHIN REACH.
--- NOTE | 2025-03-29 02:00 | NUR ---
0140 PT CALLING OUT; RN TO ROOM TO MEDICATE PER MAR. PT NEEDED MULTIPLE REINFORCEMENTS REGARDING PLAN AND UPDATE ABOUT BEING AT HOME. PT STATES MEDICATION OFFERED RELIEF OF PAIN TO LEFT HIP.
[2025-03-29 04:30] VITALS: BP 136/70
--- NOTE | 2025-03-29 04:55 | NUR ---
SHIFT SUMMARY PT WITH INTERMITTENT CONFUSION NEEDING REDIRECTION THROUGHOUT NOC SHIFT. PT MEDICATED PER EMAR FOR PAIN. PT HAD AN EPISODE OF AGITATION R/T NOT KNOWING WHERE MARBIN (SPOUSE) WAS AND TOOK CLOTHES OFF, AQUACEL WAS REMOVED (SEE PREVIOUS NOTE). PT PLEASANT AND TOLERATED PO FLUIDS DURING NOC SHIFT.
[2025-03-29 05:08] LABS: BASOPHILS ABSOLUTE AUTO 0.01 K/mm3 (0.00-0.23); BASOPHILS PERCENT AUTO 0 % (0-2); EOSINOPHILS ABSOLUTE AUTO 0.01 K/mm3 (0.00-0.68); EOSINOPHILS PERCENT AUTO 0 % (0-6); Hematocrit 26.7 % (37.0-53.0); Hemoglobin 9.0 g/dL (13.5-17.5); IMMATURE GRAN ABSOLUTE AUTO 0.03 K/mm3 (0.00-0.10); IMMATURE GRAN PERCENT AUTO 0 % (0-1); LYMPHOCYTES ABSOLUTE AUTO 0.57 K/mm3 (0.84-5.20); LYMPHOCYTES PERCENT AUTO 6 % (21-46); MONOCYTES ABSOLUTE AUTO 0.67 K/mm3 (0.16-1.47); MONOCYTES PERCENT AUTO 8 % (4-13); Mean Corpuscular HGB Conc 33.7 g/dL (31.5-36.5); Mean Corpuscular Volume 92 fL (80-100); NEUTROPHILS ABSOLUTE AUTO 7.56 K/mm3 (1.96-9.15); NEUTROPHILS PERCENT AUTO 86 % (41-73); NRBC ABSOLUTE 0.00 K/mm3 (0.00-0.02); NRBC Auto 0.0 /100 WBC (0.0-0.2); Platelet Count 148 K/mm3 (150-400); RDW Coefficient Variation 13.0 % (11.7-14.2); RDW Standard Deviation 43.4 fL (35.1-46.3)
[2025-03-29 05:26] LABS: Albumin, Blood 2.5 g/dL (3.4-5.0); Anion Gap 6 mmol/L (3-11); Blood Urea Nitrogen 20 mg/dL (8-24); CO2, Blood 27 mmol/L (21-32); Calcium, Blood 10.2 mg/dL (8.5-10.1); Chloride, Blood 108 mmol/L (98-108); Creatinine, Blood 0.90 mg/dL (0.60-1.20); Glucose, Blood 128 mg/dL (70-99); Phosphorus, Blood 2.3 mg/dL (2.5-4.9); Potassium, Blood 4.1 mmol/L (3.5-5.5); Sodium, Blood 137 mmol/L (136-145)
[2025-03-29 07:07] VITALS: BP 135/82
[2025-03-29] MEDS ORDERED: Enoxaparin 40 MG/0.4 ML SYR SC SCH (10:00)
--- NOTE | 2025-03-29 11:42 | NUR ---
"Spiritual Care Visit | Pt./Family Request Pt. is soundly resting but spouse is at bedside and welcomes my visit. Focus of the visit was with the spouse aníbal shared the Pts. condition and how they have recently relocated to a new residence. Spouse shared of the Pts. deteriorating condision and recent fall. Listen with emapthy and a calming presence. Considered matters of jeevan and belief and rappoprt is established. Though we did not disturb the Pt. Prayer was given for him. Spouse verbalized gratitude for the spiritual care visit and welcomed this solvent station attendant to return."
--- NOTE | 2025-03-29 14:05 | NUR ---
TO BEDSIDE, ROUDNING ON PT VERBAL ORDERS GIVEN PER EMAR R/T PAIN MANAGEMENT. DR AWARE OF PT RETAINING URINE, ORDER GIVEN FOR REINOSO.
[2025-03-29] MEDS ORDERED: Ketorolac Tromethamine 15mg Vial IV PRN (14:20)
--- NOTE | 2025-03-29 16:37 | NUR ---
SHIFT SUMMARY POD 1 L FEMORAL NECK REPAIR. VSS, O2 SAT >90% ON RA. A&O x2, COOPERATIVE c CARE. PT HAS SLEPT MOST OF SHIFT. TOLERATING ORALS, REQUIRES AID c MEALS. SWALLOWS PILLS WHOLE c WATER. AQUACEL C/D/I. PT REPORTS PAIN TOLERABLE. REINOSO PLACED TODAY R/T RETENTION, DRAINING GRICELDA URINE TO GRAVITY. PT STOOD @ BEDSIDE TODAY c PHYSCIAL THERAPY, NOT ABLE TO STAND/PIVOT, VERY RIGID. BED ALARM IN USE. ANURAG CURRENTLY AT BEDSIDE. CALL LIGHT IN REACH, WILL REPORT TO DAY RN.
[2025-03-29 19:26] VITALS: BP 117/65
[2025-03-30 03:30] VITALS: BP 158/91
[2025-03-30 06:01] LABS: BASOPHILS ABSOLUTE AUTO 0.02 K/mm3 (0.00-0.23); BASOPHILS PERCENT AUTO 0 % (0-2); EOSINOPHILS ABSOLUTE AUTO 0.18 K/mm3 (0.00-0.68); EOSINOPHILS PERCENT AUTO 3 % (0-6); Hematocrit 27.0 % (37.0-53.0); Hemoglobin 9.3 g/dL (13.5-17.5); IMMATURE GRAN ABSOLUTE AUTO 0.03 K/mm3 (0.00-0.10); IMMATURE GRAN PERCENT AUTO 0 % (0-1); LYMPHOCYTES ABSOLUTE AUTO 0.88 K/mm3 (0.84-5.20); LYMPHOCYTES PERCENT AUTO 13 % (21-46); MONOCYTES ABSOLUTE AUTO 0.57 K/mm3 (0.16-1.47); MONOCYTES PERCENT AUTO 8 % (4-13); Mean Corpuscular HGB Conc 34.4 g/dL (31.5-36.5); Mean Corpuscular Volume 93 fL (80-100); NEUTROPHILS ABSOLUTE AUTO 5.11 K/mm3 (1.96-9.15); NEUTROPHILS PERCENT AUTO 75 % (41-73); NRBC ABSOLUTE 0.00 K/mm3 (0.00-0.02); NRBC Auto 0.0 /100 WBC (0.0-0.2); Platelet Count 146 K/mm3 (150-400); RDW Coefficient Variation 12.9 % (11.7-14.2); RDW Standard Deviation 43.7 fL (35.1-46.3)
[2025-03-30 06:17] LABS: Albumin, Blood 2.6 g/dL (3.4-5.0); Anion Gap 6 mmol/L (3-11); Blood Urea Nitrogen 22 mg/dL (8-24); CO2, Blood 27 mmol/L (21-32); Calcium, Blood 10.2 mg/dL (8.5-10.1); Chloride, Blood 107 mmol/L (98-108); Creatinine, Blood 1.03 mg/dL (0.60-1.20); Glucose, Blood 96 mg/dL (70-99); Phosphorus, Blood 1.8 mg/dL (2.5-4.9); Potassium, Blood 3.7 mmol/L (3.5-5.5); Sodium, Blood 136 mmol/L (136-145)
--- NOTE | 2025-03-30 06:21 | NUR ---
SHIFT SUMMARY NO ACUTE CHANGES OVERNIGHT. PT WITH MULTIPLE REDIRECTIONS DURING SHIFT; BED ALARM ON FOR SAFETY.
[2025-03-30 07:01] VITALS: BP 165/94
[2025-03-30] MEDS ORDERED: Polyethylene Glycol 3350 17 gm PO SCH (10:10)
--- NOTE | 2025-03-30 10:55 | NUR ---
MET WITH PATIENT AND HIS MARBIN. DISCUSSED DISCHARGE PLAN AND SYMPTOM MANAGMENT. BUILDING CONTRACTOR PRESENT DURING THIS CONVERSATION. PATIENT HAS NOT HAD A CHARTED BM SINCE 03/25. CONFIRMS THAT HE HAS NOT HAD A BM THAT SHE IS AWARE OF IN A WHILE. UPDATED PROVIDER AND BOWEL CARE ORDERED.
--- NOTE | 2025-03-30 11:04 | NUR ---
Spiritual Care Visit Pt is resting comfortably when this dress operator met with his spouse in the hallway. Spouse updated this dress operator regarding the Pts. progress and requested that her sikhism be contacted about the Pts. admission. This dress operator will make contact with the Pts. sikhism.
[2025-03-30 16:00] VITALS: BP 136/87
--- NOTE | 2025-03-30 16:17 | NUR ---
SHIFT SUMMARY POD 2 L HIP REPAIR. NO ACUTE CHANGES THIS SHIFT. VSS, O2 SAT >90% ON RA. A&O x2, COOPERATIVE c CARE. REQUIRES MIN REDIRECTION TO STAY IN BED. TOLERATING FINGER FOOD DIET, AIDS c MEALS. AQUACEL C/D/I c QUARTER-SIZED SEROSANG DRAINAGE ON DRESSING. PT MEDICATED PER EMAR FOR PAIN. REINOSO DRAINING PINK URINE TO GRAVITY. NO BM TODAY, BOWEL CARE PER EMAR & "BROWN COW." PHYSCIAL THERAPY UNABLE TO WORK c PT TODAY, PT REMAINS RIGID & 2 PERSON MAX ASSIST FOR REPOSITIONING. BED ALARM IN USE. CURRENTLY AT BEDSIDE. CALL LIGHT IN REACH, WILL REPORT TO DAY RN.
[2025-03-30 19:21] VITALS: BP 155/89
[2025-03-31 02:47] VITALS: BP 168/94
--- NOTE | 2025-03-31 04:25 | NUR ---
NOC SUMMARY- NO NEW ISSUES NOTED. PT REMAINS CONFUSED. PT REPOSITIONED TOLERATED. PT TOLERATING PO. PT REINOSO DRAINING TO GRAVITY. DRESSING C/D/I. CALL LIGHT IN REACH AND BED ALARM ON.
[2025-03-31 06:03] LABS: BASOPHILS ABSOLUTE AUTO 0.02 K/mm3 (0.00-0.23); BASOPHILS PERCENT AUTO 0 % (0-2); EOSINOPHILS ABSOLUTE AUTO 0.28 K/mm3 (0.00-0.68); EOSINOPHILS PERCENT AUTO 5 % (0-6); Hematocrit 25.7 % (37.0-53.0); Hemoglobin 8.9 g/dL (13.5-17.5); IMMATURE GRAN ABSOLUTE AUTO 0.04 K/mm3 (0.00-0.10); IMMATURE GRAN PERCENT AUTO 1 % (0-1); LYMPHOCYTES ABSOLUTE AUTO 0.96 K/mm3 (0.84-5.20); LYMPHOCYTES PERCENT AUTO 18 % (21-46); MONOCYTES ABSOLUTE AUTO 0.53 K/mm3 (0.16-1.47); MONOCYTES PERCENT AUTO 10 % (4-13); Mean Corpuscular HGB Conc 34.6 g/dL (31.5-36.5); Mean Corpuscular Volume 90 fL (80-100); NEUTROPHILS ABSOLUTE AUTO 3.57 K/mm3 (1.96-9.15); NEUTROPHILS PERCENT AUTO 66 % (41-73); NRBC ABSOLUTE 0.00 K/mm3 (0.00-0.02); NRBC Auto 0.0 /100 WBC (0.0-0.2); RDW Coefficient Variation 12.7 % (11.7-14.2); RDW Standard Deviation 42.0 fL (35.1-46.3)
[2025-03-31 06:04] LABS: Albumin, Blood 2.4 g/dL (3.4-5.0); Anion Gap 4 mmol/L (3-11); Blood Urea Nitrogen 19 mg/dL (8-24); CO2, Blood 29 mmol/L (21-32); Calcium, Blood 9.8 mg/dL (8.5-10.1); Chloride, Blood 107 mmol/L (98-108); Creatinine, Blood 0.89 mg/dL (0.60-1.20); Glucose, Blood 104 mg/dL (70-99); Phosphorus, Blood 2.1 mg/dL (2.5-4.9); Potassium, Blood 3.4 mmol/L (3.5-5.5); Sodium, Blood 137 mmol/L (136-145)
[2025-03-31 06:07] LABS: Platelet Count 146 K/mm3 (150-400)
[2025-03-31 07:19] VITALS: BP 158/78
[2025-03-31] MEDS ORDERED: Polyethylene Glycol 3350 17 gm PO PRN (07:40)
--- NOTE | 2025-03-31 10:43 | NUR ---
"Spiritual Care Visit | Family Support Pt. is somnolent, but spouse meets with this it program manager in the doorway to update me on the pts. edil. Spouse verbalized expectation that the pt. would be transferred to a care facility as soon as one can be located. Spouse also shared of other family members who were undergoing health challenges, specifically her brother. Spouse verbalized gratiude for the spiritual care visit and requested this it program manager to update her local roman catholic of Pts. status."
[2025-03-31] MEDS ORDERED: OXYC5 PO (13:30)
[2025-03-31] MEDS ORDERED: MIRALAX17 GM PO (13:30)
[2025-03-31 14:28] VITALS: BP 115/68
--- NOTE | 2025-03-31 15:19 | NUR ---
RN NOTE FACILITY TRANSFER TO [facility] PUT ON HOLD NO BM DOCUMENTED SINCE 03/25. [facility] Q4HRS PRN STARTED AT 0900, SECOND DOSE AT 1300. SUNI AUGUSTINE AWARE OF DELAY IN TRANSFER. DR MALHOTRA INFORMED OF DELAY IN TRANSFER AND REASON FOR DELAY. TELEPHONE ORDER FOR FLEETS ENEMA NOW, READ BACK DONE AND ORDER ENTERED INTO [employer]. AT BEDSIDE UPDATED ON PLAN OF CARE.
--- NOTE | 2025-03-31 15:59 | NUR ---
SHIFT SUMMARY MR MCINTOSH HAS BEEN VERY SLEEPY THROUGHOUT THE SHIFT. HIS HAS BEEN PRESENT FOR MOST OF THE SHIFT AND HAS HELPED HIM EAT BREAKFAST AND LUNCH. SHE SAID HE SLEEPS A LOT AT HOME, BUT SEEMS MORE SLEEPY THAN USUAL. HE RESPONDS TO VERBAL REQUESTS BUT QUICKLY CLOSES HIS EYES AGAIN. HE HAS DENIED HAVING PAIN. HE DID WINCE THIS MORNING WHEN HIS RIGHT LEG WAS MOVED. HE WAS GIVEN A BED BATH THIS MORNING AND REPOSITIONED IN BED Q2HRS. LARGE PURPLE BRUISE ON THE LET HIP AND POST-OP AQUCELL DRESSING WITH SOME SHADOWING UNDERNEITH LEFT IN PLACE. FLEETS ENEMA GIVEN AND MEDIUM SIZED SOFT STOOL PASSED. 2 STAFF HEAVY PIVOT-TRANSFER TO THE RECLINER. CHAIR AND BED ALARMS USED. CALL LIGHT IN REACH. CARE CHANNEL PLAYING.
--- NOTE | 2025-03-31 16:27 | NUR ---
[facility] ACCEPTED MR POSEY AFTER BOWEL MOVEMENT. MEDICAL TRANSFER ARRIVED AT 1625HRS WITH WHEELCHAIR. TWO STAFF HEAVY PIVOT TRANSFER. AT BEDSIDE UP TO DATE WITH PLAN OF CARE. DR MALHOTRA UPDATED THAT MR POSEY WAS TRANSFERED. REPORT CALLED TO [facility], ACCEPTING NURSE.
== END 2025-03-31 16:32 | DRG 522 ==
LOC: ER 22:04 → SURS 03-28 00:11
PROVIDERS: Emergency Medicine; Internal Medicine Endocrinology, Diabetes & Metabolism; ADMIT Internal Medicine
PROC: 0SRS01Z Replacement of Left Hip Joint, Femoral Surface with Metal Synthetic Substitute, Open Approach (ICD-10-PCS; 2025-03-28)
PROC: 0T9B70Z Drainage of Bladder with Drainage Device, Via Natural or Artificial Opening (ICD-10-PCS; principal; 2025-03-29)
DX: S72.012A Unspecified intracapsular fracture of left femur, initial encounter for closed fracture (principal); I10 Essential (primary) hypertension; E78.5 Hyperlipidemia, unspecified; F41.8 Other specified anxiety disorders; G89.29 Other chronic pain; E87.6 Hypokalemia; G20.A1 Parkinson's disease without dyskinesia, without mention of fluctuations; F02.80 Dementia in other diseases classified elsewhere, unspecified severity, without behavioral disturbance, psychotic disturbance, mood disturbance, and anxiety; D64.9 Anemia, unspecified; K63.89 Other specified diseases of intestine; K59.09 Other constipation; N40.1 Benign prostatic hyperplasia with lower urinary tract symptoms; N13.9 Obstructive and reflux uropathy, unspecified; G25.0 Essential tremor; E21.0 Primary hyperparathyroidism; Z86.73 Personal history of transient ischemic attack (TIA), and cerebral infarction without residual deficits; Z90.89 Acquired absence of other organs; Z98.890 Other specified postprocedural states; W18.30XA Fall on same level, unspecified, initial encounter
CPT/HCPCS: 36415; 36416; 51701; 51702; 70450; 72125; 73502; 73552; 73590; 74177; 80053; 80069; 81001; 82728; 83540; 83550; 83735; 83880; 84100; 85025; 85610; 87077; 87086; 87186; 93005; 93010; 97162; 97530; 99285-25; A9270; C1776; J0165; J0690; J0735; J1100; J1650; J1885; J2371; J2405; J2704; J2795; J3010; J3480; J7030; J7050; J7120; Q9967